=== PATIENT | female | born 1965 | race Caucasian/White ===

== ENCOUNTER 2022-03-04 10:31 | Emergency (ER) | payer BC ==
--- OUTSIDE RECORDS SUMMARY | 2022-03-04 10:33 | XMS REPORT | Clinical Summary ---
:1965 Author Organization [facility] Address [address] [place] [address] Care Team Providers Name Role Phone Amber Ayala MD Unavailable Gamal Paiz MD Unavailable Magui Jasso MD Primary Care Provider Allergies No known active allergies Medications Medication Sig Dispensed Refills Start Date End Date Status doxycycline Take 1 tablet by 0 12/25/2020 Active (VIBRAMYCIN) 100 mg mouth twice daily. tablet escitalopram Take 1 tablet by 0 11/18/2020 Active (LEXAPRO) 10 mg mouth daily. tablet Elidel 1 % cream Apply 1 application 0 12/25/2020 Active topically to affected area(s) daily. Soolantra 1 % crea Apply 1 application 0 12/25/2020 Active topically to affected area(s) daily. multivitamin Take 1 tablet by 0 Active (multivitamin) tablet mouth daily. ascorbic acid, Take 1,000 mg by 0 Active vitamin C, (vitamin mouth daily. C) 1000 mg tablet zinc 50 mg tab Take 1 tablet by 0 Active mouth daily. UNABLE TO FIND Take 500 mg by 0 Active mouth daily. Med Name: Qurcetine cholecalciferol, Take 1 tablet by 0 Active vitD3,/vit K2 mouth daily. (vitamin D3-vitamin K2) 250 mcg (10,000 unit)-45 mcg cap levothyroxine Take 1 tablet by 0 01/13/2021 Active (SYNTHROID, mouth daily. LEVOTHROID) 112 mcg tablet Active Problems Problem Noted Date Graves' disease 01/22/2021 Atypical squamous cells cannot exclude high grade squa mous intraepithelial 01/21/2021 lesion on cytologic smear of cervix (ASC-H) Positive cervical high risk HPV DNA test 01/21/2021 Encounters Date Type Specialty Care Team Description 01/19/2022 Orders Only Gynecology Tierra Gupta PA after 03/04/2021 Surgical History Surgery Date Site/Laterality Comments COLONOSCOPY Medical History Medical History Date Comments Allergic rhinitis year long Cyst of breast fibroid cysts Asthma Menopause Disorder of thyroid gland Graves disease -radiation therapy Anxiety Family History Medical History Relation Name Comments -Other cancer Maternal Grandfather -Other cancer Mother Magaly Espinal Sinus Cancer Relation Name Status Comments Maternal Grandfather Other Back cancer Mother Magaly Espinal Social History Tobacco Use Types Packs/Day Years Used Date Smoking Tobacco: Never Smokeless Tobacco: Never Alcohol Use Standard Drinks/Week Comments Yes 2 (1 standard drink = 0.6 oz pure alcoho l) Social drinker Sex Assigned at Date Recorded Not on file Job Start Date Occupation Industry Not on file Not on file Not on file Obstetrics History Para Term AB IAB SAB Ectopic Multiple Living Live Births 2 2 2 Date Outcome GA Total Labor/2nd/3rd Weight Sex Delivery Anes PTL Shannon A 1 A5 Name Clin Labor Term Term Last Filed Vital Signs Not on file Plan of Treatment Health Maintenance Due Date Last Done Comments COVID-19 Vaccination (#1) 1965 Results Not on fileafter 03/04/2021 Insurance Payer Benefit Plan / Subscriber ID Effective Dates Phone Addre ss Type Group [place] O [id number] 2016-Present PO CRUZ [id number] [facility] [place]UE [place] BLUE/[place] [id number] Care Teams Community Specialist Relationship Specialty Start Date End Date Amber Ayala PCP - External Obstetrics/Gynecology 11/23/20 MD Eliana Referring [address] [address] Gamal Paiz PCP - External Primary Internal Medicine 12/01/20 MD Bailey Care Provider Magui Jasso, PCP - General Gynecological Oncology 12/21/[address] [place] [id number]
--- OUTSIDE RECORDS SUMMARY | 2022-03-04 10:34 | XMS REPORT | Continuity of Care Document ---
:1965 Author Organization [facility] t Address [address] [place] [address] [place] [id number] Care Team Providers Name Role Phone Korin Jasso MD Primary Care Physician SYSTEM, PROVIDER NOT IN Attending Clinician Unavailable Jordan Snider Attending Clinician Unavailable Mark Wu MD Attending Clinician Tierra Beal Attending Clinician KORIN JASSO Attending Clinician Unavailable MELY COY Attending Clinician Unavailable SHAYNA SCHMIDT Attending Clinician Unavailable Gamal Paiz Admitting Clinician Unavailable Payers Payer Name Policy Type Policy Number Effective Date Expiration Date S ource Problems Condition Condition Condition Status Onset Resolution Last Treating Co mments Source Name Details Category Date Date Treatment Clinician Date Graves' Graves' Disease Active 2020-04 Univers disease disease 0-01 ity of 00:00: [place] 00 [facility] Atypical Atypical Disease Active Unive rs squamous squamous 01-21 ity of cells cells 00:00: [place] cannot cannot 00 exclude exclude [place] high grade high grade n squamous squamous Cancer intraepith intraepith Ce nter elial elial lesion on lesion on cytologic cytologic smear of smear of cervix cervix (ASC-H) (ASC-H) Positive Positive Disease Active 2021-0 Unive rs cervical cervical 9-30 [place] of high risk high risk [place] HPV DNA HPV DNA [facility] Allergies, Adverse Reactions, Alerts Allergy Allergy Status Severity Reaction(s) Onset Inactive Treating Comm ents Source Name Type Date Date Clinician No Known DA Active U 2021-04 [facility]10 [place] [facility] Family History Family Member Diagnosis Comments Start Date Stop Date Source Natural mother -Other cancer [facility] Natural mother Cancer [facility] Maternal grandfather -Other cancer [facility] Natural father Diabetes [facility] Natural father Heart attack [facility] Social History Social Habit Start Date Stop Date Quantity Comments Source Alcohol intake 2021-01-25 2021-01-25 Current drinker Unive rsity of 00:00:00 00:00:00 of alcohol [place] MD Santamaria [facility] Tobacco use and 2021-01-22 2021-01-22 Smokeless tobacco Un iversity of exposure 00:00:00 00:00:00 non-user Bella Santamaria [facility] Alcohol Comment 2021-01-22 2021-01-22 Social drinker Unive rsity of 00:00:00 00:00:00 [place] MD Santamaria [facility] Sex Ass[birth year] At [birth year] Univers[facility] y of 00:00:00 00:00:00 [place] MD Santamaria [facility] Smoking Status Start Date Stop Date Source Never smoked tobacco [facility] Medications Ordered Filled Start Stop Current Ordering Indication Dosage Frequency Signature Comments Components Source Medication Medication Date Date Medication? Clinician (SIG) Name Name multivitami 2020-04 Yes 1{tbl} Take 1 Un guy n 0-01 tablet by ity of (multivitam 10:13: mouth [place] in) tablet 38 daily. MD [place] kraft [facility] ascorbic 2020-04 Yes 1000mg Take 1,000 U nivers acid, 0-01 mg by ity of vitamin C, 10:13: mouth [place] (vitamin C) 38 daily. 1000 mg [place] [facility] zinc 50 mg 2020-04 Yes 1{tbl} Take 1 Uni vers tab 0-01 tablet by ity of 10:13: mouth [place] 38 daily. MD [place] kraft [facility] UNABLE TO 2020-04 Yes 500mg Take 500 Uni vers FIND 0-01 mg by ity of 10:13: mouth [place] 38 daily. Med Name: [place] Qurcetine [facility] cholecalcif 2020-04 Yes 1{tbl} Take 1 Un guy pretty, 0-01 tablet by ity of vitD3,/vit 10:13: mouth [place] K2 (vitamin 38 daily. D3-vitamin Latoyaerso K2) 250 mcg n (10,000 Cancer unit)-45 [facility] cap multivitami 2020-04 Yes 1{tbl} Take 1 Un guy n 0-01 tablet by ity of (multivitam 10:13: mouth [place] in) tablet 38 daily. MD [place] kraft [facility] ascorbic 2020-04 Yes 1000mg Take 1,000 U nivers acid, 0-01 mg by ity of vitamin C, 10:13: mouth [place] (vitamin C) 38 daily. 1000 mg [place] tablet [facility] zinc 50 mg 2020-04 Yes 1{tbl} Take 1 Uni vers tab 0-01 tablet by ity of 10:13: mouth [place] 38 daily. MD [place] kraft [facility] UNABLE TO 2020-04 Yes 500mg Take 500 Uni vers FIND 0-01 mg by ity of 10:13: mouth [place] 38 daily. Med Name: [place] Qudanielaetine [facility] cholecalcif 2020-04 Yes 1{tbl} Take 1 Un guy pretty, 0-01 tablet by ity of vitD3,/vit 10:13: mouth [place] K2 (vitamin 38 daily. D3-vitamin [place] K2) 250 mcg n (10,000 Cancer unit)-45 [facility] cap levothyroxi Yes 1{tbl} Take 1 Un guy ne 9-22 tablet by ity of (SYNTHROID, 00:00: mouth [place] LEVOTHROID) 00 daily. 112 mcg [place] tablet [facility] levothyroxi Yes 1{tbl} Take 1 Un guy ne 9-22 tablet by ity of (SYNTHROID, 00:00: mouth [place] LEVOTHROID) 00 daily. 112 mcg [place] tablet [facility] doxycycline 2021-0 Yes 1{tbl} Take 1 Un guy (VIBRAMYCIN 9-03 tablet by ity of ) 100 mg 00:00: mouth [place] tablet 00 twice MD daily. [facility] Elidel 1 % Yes 1{appli Apply 1 U nivers cream 9-03 cation} applicatio ity o f 00:00: n [place] 00 topically MD to Anderso affected n area(s) Cancer daily. [place] Soolantra 1 Yes 1{appli Apply 1 Univers % crea 9-03 cation} applicatio ity of 00:00: n [place] 00 topically MD to Anders[place] affected n area(s) Cancer daily. [place] doxycycline Yes 1{tbl} Take 1 Un guy (VIBRAMYCIN 9-03 tablet by ity of ) 100 mg 00:00: mouth [place] tablet 00 twice MD daily. [facility] Elidel 1 % Yes 1{appli Apply 1 U nivers cream 9-03 cation} applicatio ity o f 00:00: n [place] 00 topically MD to Anderso affected n area(s) Cancer daily. [place] Soolant 1 Yes 1{appli Apply 1 Univers % crea 9-03 cation} applicatio ity of 00:00: n [place] 00 topically MD to Anderso affected n area(s) Cancer daily. [place] escitalopra Yes 1{tbl} Take 1 Un guy m (LEXAPRO) 7-28 tablet by ity of 10 mg 00:00: mouth [place] tablet 00 daily. MD [place] kraft [facility] escitalopra Yes 1{tbl} Take 1 Un guy m (LEXAPRO) 7-28 tablet by ity of 10 mg 00:00: mouth [place] tablet 00 daily. MD [place] kraft [facility] levothyroxi 0 Yes [facility] - [facility] (SYNTHROID) 00:00: Hospit a 88 mcg 00 l tablet levothyroxi 0 Yes [facility] ne [facility]-22 st (SYNTHROID) 00:00: Hospit a 88 mcg 00 l tablet escitalopra Yes [facility] i [facility] (LEXAPRO) 05-20 st 20 MG 00:00: Hospita tablet 00 l escitalopra 2020-0 Yes [facility] i [facility] (LEXAPRO) 05-20 st 20 MG 00:00: Hospita tablet 00 l Procedures This patient has no known procedures. Plan of Care Planned Activity Planned Date Details Comments Source Future Scheduled 2022-03-01 HEPATITIS B VACCINES [facility] Test 13:36:25 (1 of 3 - 3-dose series) [code = HEPATITIS B VACCINES (1 of 3 - 3-dose series)] Future Scheduled 2022-03-01 COVID-19 VACCINE (#1) [facility] Test 13:36:25 [code = COVID-19 VACCINE (#1)] Future Scheduled 2022-03-01 Hepatitis C screening [facility] Test 13:36:25 (procedure) [code = 407752999] Future Scheduled 2022-03-01 Screening for [facility] Test 13:36:25 malignant neoplasm of cervix (procedure) [code = 057815681] Future Scheduled 2022-03-01 BREAST CANCER [facility] Test 13:36:25 SCREENING [code = BREAST CANCER SCREENING] Future Scheduled 2022-03-01 COLONOSCOPY SCREENING [facility] Test 13:36:25 [code = COLONOSCOPY SCREENING] Future Scheduled 2022-03-01 SHINGLES VACCINES (1 [facility] Test 13:36:25 of 2) [code = SHINGLES VACCINES (1 of 2)] Future Scheduled 2022-03-01 INFLUENZA VACCINE Method [facility] Test 13:36:25 [code = INFLUENZA VACCINE] Future Scheduled 2022-03-01 HEPATITIS B VACCINES [facility] Test 13:36:25 (1 of 3 - 3-dose series) [code = HEPATITIS B VACCINES (1 of 3 - 3-dose series)] Future Scheduled 2022-03-01 COVID-19 VACCINE (#1) [facility] Test 13:36:25 [code = COVID-19 VACCINE (#1)] Future Scheduled 2022-03-01 Hepatitis C screening [facility] Test 13:36:25 (procedure) [code = 504776829] Future Scheduled 2022-03-01 Screening for [facility] Test 13:36:25 malignant neoplasm of cervix (procedure) [code = 308413403] Future Scheduled 2022-03-01 BREAST CANCER [facility] Test 13:36:25 SCREENING [code = BREAST CANCER SCREENING] Future Scheduled 2022-03-01 COLONOSCOPY SCREENING [facility] Test 13:36:25 [code = COLONOSCOPY SCREENING] Future Scheduled 2022-03-01 SHINGLES VACCINES (1 [facility] Test 13:36:25 of 2) [code = SHINGLES VACCINES (1 of 2)] Future Scheduled 2022-03-01 INFLUENZA VACCINE [facility] Test 13:36:25 [code = INFLUENZA VACCINE] Future Scheduled 2022-01-26 COVID-19 Vaccination [facility] [place] Test 08:33:10 (#1) [code = COVID-19 [facility] Vaccination (#1)] Center Future Scheduled 2022-01-26 COVID-19 Vaccination [facility] [place] Test 08:33:10 (#1) [code = COVID-19 MD [facility] Vaccination (#1)] Center Encounters Start End Encounter Admission Attending Care Care Encounter Source Date/Time Date/Time Type Type Clinicians Facility Department ID 2021-02-04 Outpatient SYSTEM, LILLY CARR [id number] 11:25:18 PROVIDER Silver o swapnil 2020-11-25 Outpatient SYSTEM, LILLY CARR [id number] 08:22:57 PROVIDER Silver o n 2022-03-03 2022-03-03 Emergency EM Snider, [facility] [id number] [facility] 14:20:00 16:30:00 Jordan 24 [facility] 2022-03-01 2022-03-01 Transcribe Attar, 1.2.840.1 [id number] Methodi 00:00:00 00:00:00 Orders Mark [address] 3.430.2.7 Hospit a .3.337712 l .8 2022-03-01 2022-03-01 Transcribe Attar, 1.2.840.1 [id number] Methodi 00:00:00 00:00:00 Orders Mark [address].1.[address] 3.430.2.7 Hospit a .3.093195 l .8 2022-01-19 2022-01-19 Orders Tierra Gupta 1.2.840.1 [id number] [facility] 00:00:00 00:00:00 Only 59266.1.1 ity of 3.412.2.7 [place] .3.082404 .8 [facility] Center 2022-01-19 2022-01-19 Tierra Ohara 1.2.840.1 [id number] [facility] 00:00:00 00:00:00 Only 24062.1.1 ity of 3.412.2.7 [place] .3.698093 .8 [facility] 2021-01-22 2021-01-22 Outpatient NIKIA JASSO MDA MDA [id number] 09:34:58 09:34:58 KORIN kraft 2021-01-22 2021-01-22 Outpatient NIKIA COY MDA MDA [id number] 09:29:58 09:30:13 MELY kraft 2019-10-17 2019-10-17 Outpatient ROXANA [facility] [id number] 00:00:00 00:00:00 SHAYNA [address] 2019-09-05 2019-09-05 Outpatient [facility] [id number] 00:00:00 00:00:00 SHAYNA [address] 2019-09-05 2019-09-05 Outpatient [facility] [id number] 00:00:00 00:00:00 SHAYNA [address] 2019-07-02 2019-07-02 [facility] [id number] [place] 00:00:00 00:00:00 SHAYNA [address] Results Test Description Test Time Test Comments Results Result Comments Source - XR FOOT 3+V LT 2022-03-03 15:15:00 [facility] LYLYName: CHRISTOPHE STONER : 1965 Sex: F Name: CHRISTOPHE STONER : 1965 Age/S: 56 / F [address] [address] [place] Unit #: [id number] Loc: [place] [address] Phys: Jordan Snider MD Acct: [id number] Dis Date: Status: REG ER PHONE #: [phone] Exam Date: 03/03/2022 1436 FAX #: Reason: injury 5th digit EXAMS: CPT: [id number] XR FOOT 3+[place] [address] Fluoro Time: DAP (Gy m2): Air Kerma (mGy): Location Code: S17 EXAMINATION: - XR FOOT 3+V LT CLINICAL INDICATION: Female, 56 years old with injury 5th digit COMPARISON: None FINDINGS: Three view(s) of the foot obtained. Joint spaces: Anatomic. Bones: Acute obliquely oriented fracture through the mid to distal shaft of the 5th digit proximal phalanx. Loring medial angulation. No definite intra-articular extension of the fracture line. The remainder of the visualized osseous structures appear grossly intact. Soft tissues: Soft tissue swelling about the 5th digit. IMPRESSION: Obliquely oriented fracture through the mid to distal shaft of the 5th digit proximal phalanx with apex medial angulation. No definite intra-articular extension of the fracture line. at 1515 Reported and signed by: Jason Villalta M.D. CC: Jordan Snider MD; Asim Henry TEST INSPECTION ENGINEER PAGE 1 Signed Report Name: CHRISTOPHE STONER : 1965 Age/S: 56 / F [address] [facility] Unit #: [id number] Loc: [place] [address] Phys: Jordan Snider MD Acct: [id number] Dis Date: Status: REG ER PHONE #: [phone] Exam Date: 03/03/2022 1436 FAX #: Reason: injury 5th digit EXAMS: CPT: [id number] XR FOOT 3+[place] [address] Fluoro Time: DAP (Gy m2): Air Kerma (mGy): (Continued) Technologist: LOIDA MILLS Trnn[facility] Date/Time: 03/03/2022 (3676) [email or web address] Orig Print D/T: S: 03/03/2022 (4399) PAGE 2 Signed Report
--- NOTE | 2022-03-04 12:41 | RAD REPORT ---
EXAM DESCRIPTION: RAD - Foot Left 2 View - 03/04/2022 12:30 pm CLINICAL HISTORY: PAIN COMPARISON: <Comparisons> FINDINGS: Oblique fracture is seen proximal phalanx of the fifth toe. Mild adjacent soft tissue swel ling. Tiny calcaneal spurs.
[2022-03-04] MEDS ORDERED: LIDOCAINE 1% MPF 30 ML VIAL ONE (12:58)
--- NOTE | 2022-03-04 13:41 | EDPHYS ---
Physician Documentation [facility] Name: Norma Pike Age: 56 yrs Sex: Female : 1965 Arrival Date: 03/04/2022 Time: 10:36 Bed 10 Private MD: Marya Holden ED Physician HPI: 03/04 13:37 This 56 yrs old Female presents to ER via Ambulatory with complaints of Toe jl9 Injury. Patient hit her left toe yesterday and was seen at [facility]. Patient requesting her toe to be reduced. . 13:37 Onset: The symptoms/episode began/occurred yesterday. The patient has experienced a jl9 previous episode. Historical: - Allergies: 10:54 No Known Allergies; ss - Immunization history:: Client reports having NOT received the Covid vaccine. - Social history:: Smoking status: Patient denies any tobacco usage or history of. ROS: 13:38 Constitutional: Negative for fever, chills, and weight loss, Eyes: Negative for injury, jl9 pain, redness, and discharge, ENT: Negative for injury, pain, and discharge, Neck: Negative for injury, pain, and swelling, Cardiovascular: Negative for chest pain, palpitations, and edema, Respiratory: Negative for shortness of breath, cough, wheezing, and pleuritic chest pain, Abdomen/GI: Negative for abdominal pain, nausea, vomiting, diarrhea, and constipation, Back: Negative for injury and pain, : Negative for injury, bleeding, discharge, and swelling. 13:38 Skin: Negative for injury, rash, and discoloration, Neuro: Negative for headache, weakness, numbness, tingling, and seizure, Psych: Negative for depression, anxiety, suicide ideation, homicidal ideation, and hallucinations, Allergy/Immunology: Negative for hives, rash, and allergies, Endocrine: Negative for neck swelling, polydipsia, polyuria, polyphagia, and marked weight changes, Hematologic/Lymphatic: Negative for swollen nodes, abnormal bleeding, and unusual bruising. 13:38 MS/extremity: Positive for swelling, Left fifth toe. Exam: 13:38 Constitutional: This is a well developed, well nourished patient who is awake, alert, jl9 and in no acute distress. Head/Face: Normocephalic, atraumatic. Eyes: Pupils equal round and reactive to light, extra-ocular motions intact. Lids and lashes normal. Conjunctiva and sclera are non-icteric and not injected. Cornea within normal limits. Periorbital areas with no swelling, redness, or edema. ENT: Mucous membranes moist. Neck: Trachea midline, no thyromegaly or masses palpated, and no cervical lymphadenopathy. Supple, full range of motion without nuchal rigidity, or vertebral point tenderness. No Meningismus. Chest/axilla: Normal chest wall appearance and motion. Nontender with no deformity. No lesions are appreciated. Cardiovascular: Regular rate and rhythm with a normal S1 and S2. No gallops, murmurs, or rubs. Normal PMI, no JVD. No pulse deficits. Respiratory: Lungs have equal breath sounds bilaterally, clear to auscultation and percussion. No rales, rhonchi or wheezes noted. No increased work of breathing, no retractions or nasal flaring. Abdomen/GI: Soft, non-tender, with normal bowel sounds. No distension or tympany. No guarding or rebound. No evidence of tenderness throughout. Back: No spinal tenderness. No costovertebral tenderness. Full range of motion. Skin: Warm, dry with normal turgor. Normal color with no rashes, no lesions, and no evidence of cellulitis. 13:38 Neuro: Awake and alert, GCS 15, oriented to person, place, time, and situation. Cranial nerves II-XII grossly intact. Motor strength 5/5 in all extremities. Sensory grossly intact. Cerebellar exam normal. Normal gait. Psych: Awake, alert, with orientation to person, place and time. Behavior, mood, and affect are within normal limits. 13:38 Musculoskeletal/extremity: Extremities: Left fifth toe swollen. . Vital Signs: 10:52 BP 158 / 101; Pulse 88; Resp 15; Temp 97.4(TE); Pulse Ox 100% on R/A; Weight 88.9 kg; ss Height 5 ft. 11 in. (180.34 cm); Pain 0/10; 10:52 Body Mass Index 27.34 (88.90 kg, 180.34 cm) Procedures: 13:39 Reduction: of the , using manipulation, Immobilized with ortho shoe, monica tape. jl9 Patient tolerated well. Post reduction film - reveals improved alignment. MDM: 11:19 Patient medically screened. jl9 13:40 Data reviewed: vital signs, nurses notes. Counseling: I had a detailed discussion with jl9 the patient and/or guardian regarding: the historical points, exam findings, and any diagnostic results supporting the discharge/admit diagnosis, radiology results, the need for outpatient follow up, to return to the emergency department if symptoms worsen or persist or if there are any questions or concerns that arise at home. 03/04 11:39 Order name: XRAY Foot LEFT 2 View; Complete Time: 12:42 jl9 03/04 13:30 Order name: XRAY Foot LEFT 2 View jl9 Administered Medications: 13:20 Drug: Lidocaine (1 %) 20 ml {Note: Administered by NP. Manolo} Volume: 20 ml; Route: ss Infiltration; Disposition Summary: 03/04/22 13:40 Discharge Ordered Location: Home jl9 Condition: Stable jl9 Diagnosis - Nondisplaced fracture of distal phalanx of left great toe jl9 Followup: jl9 - With: Cipriano Kauffman MD - When: 1 - 2 days - Reason: Recheck today's complaints, Continuance of care, Re-evaluation by your physician Discharge Instructions: - Discharge Summary Sheet jl9 - Toe Fracture, Ohom-ej-Gocs jl9 Forms: - Medication Reconciliation Form jl9 - Thank You Letter jl9 - Antibiotic Education jl9 - Prescription Opioid Use jl9 Signatures: Dispatcher [employer] EDJyoti Lal RN RN Manolo [place] jl9 Corrections: (The following items were deleted from the chart) 13:28 13:09 Foot Left W Comparison+RAD.RAD.BRZ ordered. EDWA EDMS
--- NOTE | 2022-03-04 13:41 | ER ---
Nurse's Notes [facility] Name: Norma Pike Age: 56 yrs Sex: Female : 1965 Arrival Date: 03/04/2022 Time: 10:36 Bed 10 Private MD: Marya Holden Diagnosis: Nondisplaced fracture of distal phalanx of left great toe Presentation: 03/04 10:52 Chief complaint: Patient states: Pt reportedly kicked a doorway yesterday and was seen ss in an ED in [place], had toe monica taped, ortho shoe placed and told to follow up. Pt states that she called her nephew who is an ortho doctor who recommended she come to the ER to have toe reduced. Coronavirus screen: Client denies travel out of the [place] in the last 14 days. Ebola Screen: Patient denies exposure to infectious person. Patient denies travel to an Ebola-affected area in the 21 days before illness onset. Initial Sepsis Screen: Does the patient meet any 2 criteria? No. Patient's initial sepsis screen is negative. Does the patient have a suspected source of infection? No. Patient's initial sepsis screen is negative. Risk Assessment: Do you want to hurt yourself or someone else? Patient reports no desire to harm self or others. Onset of symptoms was March 03, 2022. 10:52 Method Of Arrival: Ambulatory ss 10:52 Acuity: LUCIA 4 ss Historical: - Allergies: 10:54 No Known Allergies; ss - Immunization history:: Client reports having NOT received the Covid vaccine. - Social history:: Smoking status: Patient denies any tobacco usage or history of. Screenin:37 Abuse screen: Denies threats or abuse. Denies injuries from another. Nutritional ss screening: No deficits noted. Tuberculosis screening: Never had TB. Fall Risk None identified. Assessment: 13:37 General: Appears in no apparent distress. comfortable, Behavior is calm, cooperative. ss Neuro: Level of Consciousness is awake, alert, Oriented to person, place, time, situation. Respiratory: Airway is patent Respiratory effort is even, unlabored. Derm: Skin is intact, is healthy with good turgor, Skin is dry, Skin is pink, warm \T\ dry. normal. Musculoskeletal: Circulation, motion, and sensation intact. Range of motion: intact in all extremities. Vital Signs: 10:52 BP 158 / 101; Pulse 88; Resp 15; Temp 97.4(TE); Pulse Ox 100% on R/A; Weight 88.9 kg; ss Height 5 ft. 11 in. (180.34 cm); Pain 0/10; 10:52 Body Mass Index 27.34 (88.90 kg, 180.34 cm) ss ED Course: 10:36 Patient arrived in ED. am2 10:36 Marya Holden MD is Private Physician. am2 10:54 Triage completed. ss 10:54 Arm band placed on right wrist. ss 11:19 Manolo Summers is PHCP. jl9 12:32 XRAY Foot LEFT 2 View In Process Unspecified. EDMS 13:37 Jyoti Shane RN is Primary Nurse. ss 13:37 Patient has correct armband on for positive identification. ss 13:37 No provider procedures requiring assistance completed. Patient did not have IV access ss during this emergency room visit. 13:40 Cipriano Kauffman MD is Referral Physician. jl9 13:46 XRAY Foot LEFT 2 View In Process Unspecified. EDMS Administered Medications: 13:20 Drug: Lidocaine (1 %) 20 ml {Note: Administered by NP. Manolo} Volume: 20 ml; Route: ss Infiltration; Medication: 13:37 VIS not applicable for this client. ss Outcome: 13:40 Discharge ordered by . jl9 13:48 Discharged to home ambulatory. ss 13:48 Condition: good 13:48 Discharge instructions given to patient, Instructed on discharge instructions, follow up and referral plans. Demonstrated understanding of instructions, follow-up care, splint care. 13:48 Patient left the ED. ss Signatures: Dispatcher [employer] EDMS Jyoti Shane, MIGUEL RN Coral Rob am2 Manolo Summers jl9
--- NOTE | 2022-03-04 13:52 | RAD REPORT ---
EXAM DESCRIPTION: RAD - Foot Left 2 View - 03/04/2022 1:44 pm CLINICAL HISTORY: PAIN COMPARISON: Foot Left 2 View dated 03/04/2022 FINDINGS/IMPRESSION: Similar alignment of the fifth proximal phalangeal obliquely oriented fracture. Alignment is near anatomic. No other fractures are identified
[2022-03-04 14:27] VITALS: BP 158/101; TEMP 97.4; O2SAT 100
== END 2022-03-04 13:48 | disposition home or self-care (01) ==
LOC: ER 10:31
PROC: 0QSR35Z Reposition Left Toe Phalanx with External Fixation Device, Percutaneous Approach (ICD-10-PCS; principal; 2022-03-04)
DX: S92.425A Nondisplaced fracture of distal phalanx of left great toe, initial encounter for closed fracture (principal)
CPT/HCPCS: 99283

== ENCOUNTER 2022-05-05 22:59 | Emergency (ER) | payer BC ==
--- OUTSIDE RECORDS SUMMARY | 2022-05-05 23:04 | XMS REPORT | Clinical Summary ---
:1965 Author Organization [facility] Address [address] [place] [address] Care Team Providers Name Role Phone Amber Ayala MD Unavailable Gamal Paiz MD Unavailable Magui aJsso MD Primary Care Provider Allergies No known [...] Orders Only Gynecology Tierra Gupta PA after 05/05/2021 Surgical History Surgery Date Site/Laterality Comments COLONOSCOPY [...] Vaccination (#1) 1965 Results Not on fileafter 05/05/2021 Insurance Payer Benefit Plan / Subscriber ID Effective Dates Phone Addre ss Type Group [place] [id number] 2016-Present PO CRUZ [id number] [facility] [place] [place] [place] [employer] [phone] Care Teams Biomed Tech Relationship Specialty Start Date End Date Amber Ayala PCP - External Obstetrics/Gynecology 11/23/20 MD Eliana Referring [address] [id number] Gamal Paiz PCP - External Primary Internal Medicine 12/01/20 MD Bailey Care Provider Magui Jasso, PCP - General Gynecological Oncology 12/21/[address] [place] [id number]
--- OUTSIDE RECORDS SUMMARY | 2022-05-05 23:04 | XMS REPORT | Continuity of Care Document ---
:1965 Author Organization [facility] t Address [address] [place] [address] [place] [id number] Care Team Providers Name Role Phone Aries Todd MD Primary Care Physician SYSTEM, PROVIDER NOT IN Attending Clinician Unavailable Mona Shields MD Attending Clinician Tomas Geiger MD Attending Clinician [phone] Mark Wu MD Attending Clinician ALFIE ZAMARRIPA Attending Clinician Unavailable Jordan Snider Attending Clinician Unavailable Tierra Beal Attending Clinician KORIN PATEL Attending Clinician Unavailable MELY COY Attending Clinician Unavailable SHAYNA SCHMIDT Attending Clinician Unavailable MONA SHIELDS Admitting Clinician Unavailable Gamal Paiz Admitting Clinician Unavailable Payers Payer Name Policy Type Policy Number Effective Date Expiration Date Fidelina vu [employer] [id number] 2016 [facility] 00:00:00 Problems Condition Condition Condition Status Onset Resolution Last Treating Co mments Source Name Details Category Date Date Treatment Clinician Date Deviated Deviated Disease Active Metho di nasal nasal 05-02 st septum septum 00:00: Hospita 00 l Hypertroph Hypertroph Disease Active M ethodi y of nasal y of nasal 05-02 st turbinates turbinates 00:00: Ho spita 00 l Chronic Chronic Disease Active Methodi maxillary maxillary 1- st sinusitis sinusitis 00:00: Hosp maryan 00 l Chronic Chronic Disease Active Methodi frontal frontal 1 st sinusitis sinusitis 00:00: Hosp maryan 00 l Vasomotor Vasomotor Disease Active Met hodi rhinitis rhinitis 05-02 st 00:00: Hospita 00 l Graves' Graves' Disease Active 2020-04 Univers disease disease 0-01 ity of 00:00: [place] 00 MD [facility] Atypical Atypical Disease Active Unive rs squamous squamous 9-30 ity of cells cells 00:00: [place] cannot cannot 00 exclude exclude [facility] high grade high grade n squamous squamous Cancer intraepith intraepith Ce nter elial elial lesion on lesion on cytologic cytologic smear of smear of cervix cervix (ASC-H) (ASC-H) Positive Positive Disease Active Unive rs cervical cervical 9-30 ity of high risk high risk 00[place] HPV DNA HPV DNA 00 test test [facility] Allergies, Adverse Reactions, Alerts Allergy Allergy Status Severity Reaction(s) Onset Inactive Treating Comm ents Source Name Type Date Date Clinician No Known DA Active U 2021-04 [facility] 05[facility]03 [facility] Family History Family Member Diagnosis Comments Start Date Stop Date Source Natural mother -Other cancer [facility] Natural mother Cancer [facility] Maternal grandfather -Other [facility] Natural father Diabetes [facility] Natural father Heart attack [facility] Social History Social Habit Start Date Stop Date Quantity Comments Source Alcohol intake 2022-05-04 2022-05-04 Current drinker [facility] 00:00:00 00:00:00 of alcohol (finding) Tobacco use and 2022-04-29 2022-04-29 Smokeless tobacco [facility] exposure 00:00:00 00:00:00 non-user Alcohol Comment 2022-04-29 2022-04-29 social drinker [facility] 00:00:00 00:00:00 (couple times a week at the most) Sex [birth year] [facility] 00:00:00 00:00:00 [place] [facility] Smoking Status Start Date Stop Date Source Never smoked tobacco [facility] Medications Ordered Filled Start Stop Current Ordering Indication Dosage Frequency Signature Comments Components Source Medication Medication Date Date Medication? Clinician (SIG) Name Name budesonide- Yes 2{puff} Q.5D Inhale 2 Methodi formoteroL 1-[address] (SYMBICORT) 03:06: (two) Hospi ta 80-4.5 41 times a l mcg/actuati day. on inhaler chlorphenir Yes 4mg Q6H Take 1 Meth jacquelyn amine 1-11 tablet (4 st (CHLOR-TRIM 03:06: mg total) H ospita ETON) 4 mg 41 by mouth l tablet every 6 (six) hours as needed for allergies. multivitami Yes 2{tbl} QD Take 2 Me thodi n tablet 1-[address] 03:06: mouth Hospita 41 daily. l diphenhydrA Yes 25mg QD Take 1 Meth jacquelyn MINE 1-11 tablet (25 st (BENADRYL) 03:06: mg total) Ho spita 25 mg 41 by mouth l tablet nightly as needed for sleep. escitalopra Yes 10mg QD Take 1 Meth jacquelyn m (LEXAPRO) 1-11 tablet (10 st 10 MG 03:06: mg total) Hospita tablet 41 by mouth l every morning. triamcinolo Yes 2{spray QD 2 sprays Methodi ne 11 } into each st acetonide 03:06: nostril Hospi ta (NASACORT 41 daily. l NASL) Lactobac Yes QD Take by Method i no.41/Bifid 1-[address] obact no.7 03:06: daily. Hospi ta (PROBIOTIC- 41 l 10 ORAL) ondansetron 2022- Yes 4mg Q8H Take 1 Met hodi ODT 09 01-20 tablet (4 st (ZOFRAN-ODT 00:00: 05:59 mg total) Hospita ) 4 MG 00 :00 by mouth l disintegrat every 8 ing tablet (eight) hours as needed for nausea or vomiting for up to 10 days. HYDROcodone 2022- Yes [id number] 1{tbl} Q6H Take 1 Methodi -acetaminop 05-[address] hen (NORCO) 00:00: 05:59 mouth Hosp maryan 5-325 mg 00 :00 every 6 l per tablet (six) hours as needed for moderate pain for up to 7 days .acute pain. Max Daily Amount: 4 tablets sulfamethox 2022- Yes 1{tbl} Q.5D Take 1 M ethodi azole-trime 05-[address] thoprim 00:00: 05:59 mouth 2 Hospit a (Bactrim 00 :00 (two) l DS) 800-160 times a mg per day for 7 tablet days. levothyroxi 2021-04 Yes 112ug QD Take 1 Met hodi ne 2-[address] (SYNTHROID) 00:00: (112 mcg Ho spita 112 mcg 00 total) by l tablet mouth every morning. estradioL 2021-04 Yes Q.5W 2 (two) Metho di 10 mcg 2-[address] vaginal 00:00: week. Hospita tablet 00 l multivitami 2020-04 Yes 1{tbl} Take 1 Un guy n 0-01 tablet by ity of (multivitam 10:13: mouth [place] in) tablet 38 daily. MD [place] [facility] ascorbic 2020-04 Yes 1000mg Take 1,000 U nivers acid, 0-01 mg by ity of vitamin C, 10:13: mouth [place] (vitamin C) 38 daily. 1000 mg [place] tablet [facility] zinc 50 mg 2020-04 Yes 1{tbl} Take 1 Uni vers tab 0-01 tablet by ity of 10:13: mouth [place] 38 daily. MD [place] [facility] UNABLE TO 2020-04 Yes 500mg Take 500 Uni vers FIND 0-01 mg by ity of 10:13: mouth [place] 38 daily. Med Name: [place] Qurcetine [facility] cholecalcif 2020-04 Yes 1{tbl} Take 1 Un guy pertty, 0-01 tablet by ity of vitD3,/vit 10:13: mouth [place] K2 (vitamin 38 daily. D3-vitamin Anderso K2) 250 mcg n (10,000 Cancer unit)-45 Center [facility] cap multivitami 2020-04 Yes 1{tbl} Take 1 Un guy n 0-01 tablet by ity of (multivitam 10:13: mouth [place] in) tablet 38 daily. MD [place] [facility] ascorbic 2020-04 Yes 1000mg Take 1,000 U nivers acid, 0-01 mg by ity of vitamin C, 10:13: mouth [place] (vitamin C) 38 daily. 1000 mg Anderso tablet [facility] zinc 50 mg 2020-04 Yes 1{tbl} Take 1 Uni vers tab 0-01 tablet by ity of 10:13: mouth [place] 38 daily. MD [place] kraft [facility] UNABLE TO 2020-04 Yes 500mg Take 500 Uni vers FIND 0-01 mg by ity of 10:13: mouth [place] 38 daily. Med Name: [place] Qurcetine [facility] cholecalcif 2020-04 Yes 1{tbl} Take 1 Un guy pretty, 0-01 tablet by ity of vitD3,/vit 10:13: mouth [place] K2 (vitamin 38 daily. D3-vitamin Anderso K2) 250 mcg n (10,000 Cancer unit)-45 Center [facility] cap multivitami 2020-04 Yes 1{tbl} Take 1 Un guy n 0-01 tablet by ity of (multivitam 10:13: mouth [place] in) tablet 38 daily. MD [facility] ascorbic 2020-04 Yes 1000mg Take 1,000 U nivers acid, 0-01 mg by ity of vitamin C, 10:13: mouth [place] (vitamin C) 38 daily. 1000 mg Latoyaersadore tablet [facility] zinc 50 mg 2020-04 Yes 1{tbl} Take 1 Uni vers tab 0-01 tablet by ity of 10:13: mouth [place] 38 daily. MD [facility] UNABLE TO 2020-04 Yes 500mg Take 500 Uni vers FIND 0-01 mg by ity of 10:13: mouth [place] 38 daily. Med Name: [place] Qurcetine [facility] cholecalcif 2020-04 Yes 1{tbl} Take 1 Un guy pretty, 0-01 tablet by ity of vitD3,/vit 10:13: mouth [place] K2 (vitamin 38 daily. D3-vitamin Anderso K2) 250 mcg n (10,000 Cancer unit)-45 Center mcg cap levothyroxi Yes 1{tbl} Take 1 Un guy ne 9-22 tablet by ity of (SYNTHROID, 00:00: mouth [place] LEVOTHROID) 00 daily. 112 mcg Anderso tablet n [facility] levothyroxi Yes 1{tbl} Take 1 Un guy ne 9-22 tablet by ity of (SYNTHROID, 00:00: mouth [place] LEVOTHROID) 00 daily. 112 mcg Anderso tablet n [facility] levothyroxi Yes 1{tbl} Take 1 Un guy ne 9-22 tablet by ity of (SYNTHROID, 00:00: mouth [place] LEVOTHROID) 00 daily. 112 mcg Anderso tablet n [facility] doxycycline Yes 1{tbl} Take 1 Un guy (VIBRAMYCIN 9-03 tablet by ity of ) 100 mg 00:00: mouth [place] tablet 00 twice MD daily. [facility] Elidel 1 % Yes 1{appli Apply 1 U nivers cream 9-03 cation} applicatio ity o f 00:00: n [place] 00 topically MD to Anderso affected n area(s) Cancer daily. Lyman Soolantra 1 Yes 1{appli Apply 1 Univers % crea 9-03 cation} applicatio ity of 00:00: n [place] 00 topically MD to Anderso affected n area(s) Cancer daily. [facility]yman doxycycline Yes 1{tbl} Take 1 Un guy (VIBRAMYCIN 9-03 tablet by ity of ) 100 mg 00:00: mouth [place] tablet 00 twice MD daily. [facility] Elidel 1 % Yes 1{appli Apply 1 U nivers cream 9-03 cation} applicatio ity o f 00:00: n [place] 00 topically MD to Anderso affected n area(s) Cancer daily. Lyman Soolantra 1 Yes 1{appli Apply 1 Univers % crea 9-03 cation} applicatio ity of 00:00: n [place] 00 topically MD to Anderso affected n area(s) Cancer daily. Lyman doxycycline Yes 1{tbl} Take 1 Un guy (VIBRAMYCIN 9-03 tablet by ity of ) 100 mg 00:00: mouth [place] tablet 00 twice MD daily. [place] [facility] Elidel 1 % Yes 1{appli Apply 1 U nivers cream 12-25 cation} applicatio ity o f 00:00: n [place] 00 topically MD to Anderso affected n area(s) Cancer daily. Lyman Soolantra 1 Yes 1{appli Apply 1 Univers % crea 12-25 cation} applicatio ity of 00:00: n [place] 00 topically MD to Anderso affected n area(s) Cancer daily. Lyman escitalopra Yes 1{tbl} Take 1 Un guy m (LEXAPRO) 7-28 tablet by ity of 10 mg 00:00: mouth [place] tablet 00 daily. MD [place] [facility] escitalopra Yes 1{tbl} Take 1 Un guy m (LEXAPRO) 7-28 tablet by ity of 10 mg 00:00: mouth [place] tablet 00 daily. MD [place] [facility] escitalopra Yes 1{tbl} Take 1 Un guy m (LEXAPRO) 7-28 tablet by ity of 10 mg 00:00: mouth [place] tablet 00 daily. MD [place] [facility] levothyroxi 0 Yes Method i ne 05-22 st (SYNTHROID) 00:00: Hospit a 88 mcg 00 l tablet levothyroxi Yes Method i ne 05-22 st (SYNTHROID) 00:00: Hospit a 88 mcg 00 l tablet levothyroxi 0 2022- No Metho di ne 05-22-06 st (SYNTHROID) 00:00: 00:00 Hospi ta 88 mcg 00 :00 l tablet escitalopra Yes Method i m (LEXAPRO) 05-20 st 20 MG 00:00: Hospita tablet 00 l escitalopra 0 Yes Method i m (LEXAPRO) 05-20 st 20 MG 00:00: Hospita tablet 00 l escitalopra 0 2023- No Metho di m (LEXAPRO) 1-27 04-29 st 20 MG 00:00: 00:00 Hospita tablet 00 :00 l Vital Signs Vital Name Observation Time Observation Value Comments Source Systolic blood 2022-05-02 23:00:00 131 mm[Hg] [facility] pressure Diastolic blood 2022-05-02 23:00:00 86 mm[Hg] [facility] pressure Heart rate 2022-05-02 23:00:00 88 /min [facility] Body temperature 2022-05-02 23:00:00 36.33 [place] [facility] [place] Respiratory rate 2022-05-02 23:00:00 13 /min [facility] [place] Oxygen saturation in 2022-05-02 23:00:00 96 /min [facility] Arterial blood by Pulse oximetry Body height 2022-05-02 15:55:00 180.3 cm [facility] Body weight 2022-05-02 15:55:00 87.635 kg [facility] BMI 2022-05-02 15:55:00 26.95 kg/m2 [facility] Procedures Procedure Date / Time Performing Clinician Source Performed ANAEROBIC CULTURE 2022-05-02 18:43:00 [facility] FUNGUS CULTURE 2022-05-02 18:43:00 [facility] AEROBIC CULTURE 2022-05-02 18:43:00 [facility] FUNGUS SMEAR 2022-05-02 18:43:00 [facility] MN AN ELECTIVE 2022-05-02 18:06:00 Paloma Sewell [facility] ENDOTRACHEAL AIRWAY SEPTOPLASTY, NASAL 2022-05-02 17:51:00 [facility] COVID-19 QUALITATIVE 2022-04-29 22:18:00 [facility] RT-PCR HEMOGLOBIN A1C 2022-04-29 22:11:00 [facility] COMPREHENSIVE METABOLIC 2022-04-29 22:11:00 [facility] PANEL CBC WITH PLATELET AND 2022-04-29 22:11:00 [facility] DIFFERENTIAL ESTIMATED GFR 2022-04-29 22:11:00 [facility] ECG PRE/POST OP 2022-04-29 22:08:[address] [facility] [address] CARDIAC CALCIUM SCORE 2022-03-24 20:51:[address] [facility] Plan of Care Planned Activity Planned Date Details Comments Source Future Scheduled 2022-05-05 COVID-19 VACCINE (#1) [facility] Test 23:03:48 [code = COVID-19 VACCINE (#1)] Future Scheduled 2022-05-05 Hepatitis C screening [facility] Test 23:03:48 (procedure) [code = 616981841] Future Scheduled 2022-05-05 Screening for [facility] Test 23:03:48 malignant neoplasm of cervix (procedure) [code = 597386637] Future Scheduled 2022-05-05 BREAST CANCER [facility] Test 23:03:48 SCREENING [code = BREAST CANCER SCREENING] Future Scheduled 2022-05-05 COLONOSCOPY SCREENING [facility] Test 23:03:48 [code = COLONOSCOPY SCREENING] Future Scheduled 2022-05-05 SHINGLES VACCINES ([address] [facility] Test 23:03:48 of 2) [code = SHINGLES VACCINES (1 of 2)] Future Scheduled 2022-05-05 INFLUENZA VACCINE Method [facility] Test 23:03:48 [code = INFLUENZA VACCINE] Future Scheduled 2022-03-01 COLONOSCOPY SCREENING [facility] Test 13:36:25 [code = COLONOSCOPY SCREENING] Future Scheduled 2022-03-01 SHINGLES VACCINES ([address] [facility] Test 13:36:25 of 2) [code = SHINGLES VACCINES (1 of 2)] Future Scheduled 2022-03-01 INFLUENZA VACCINE Method [facility] Test 13:36:25 [code = INFLUENZA VACCINE] Future Scheduled 2022-03-01 HEPATITIS B VACCINES Met [facility] Test 13:36:25 (1 of 3 - 3-dose series) [code = HEPATITIS B VACCINES (1 of 3 - 3-dose series)] Future Scheduled 2022-03-01 COVID-19 VACCINE (#1) [facility] Test 13:36:25 [code = COVID-19 VACCINE (#1)] Future Scheduled 2022-03-01 Hepatitis C screening [facility] Test 13:36:25 (procedure) [code = [id number]] Future Scheduled 2022-03-01 Screening for [facility] Test 13:36:25 malignant neoplasm of cervix (procedure) [code = 432576523] Future Scheduled 2022-03-01 BREAST CANCER [facility] Test 13:36:25 SCREENING [code = BREAST CANCER SCREENING] Future Scheduled 2022-03-01 COLONOSCOPY SCREENING [facility] Test 13:36:25 [code = COLONOSCOPY SCREENING] Future Scheduled 2022-03-01 SHINGLES VACCINES ([address] [facility] Test 13:36:25 of 2) [code = SHINGLES VACCINES (1 of 2)] Future Scheduled 2022-03-01 INFLUENZA VACCINE Method [facility] Test 13:36:25 [code = INFLUENZA VACCINE] Future Scheduled 2022-03-01 HEPATITIS B VACCINES Met [facility] Test 13:36:25 (1 of 3 - 3-dose series) [code = HEPATITIS B VACCINES (1 of 3 - 3-dose series)] Future Scheduled 2022-03-01 COVID-19 VACCINE (#1) [facility] Test 13:36:25 [code = COVID-19 VACCINE (#1)] Future Scheduled 2022-03-01 Hepatitis C screening [facility] Test 13:36:25 (procedure) [code = [id number]] Future Scheduled 2022-03-01 Screening for [facility] Test 13:36:25 malignant neoplasm of cervix (procedure) [code = 571409157] Future Scheduled 2022-03-01 BREAST CANCER [facility] Test 13:36:25 SCREENING [code = BREAST CANCER SCREENING] Future Scheduled 2022-01-26 COVID-19 Vaccination Uni versity [...] Date/Time Type Type Clinicians Facility Department ID 2022-03-10 Outpatient [facility] [id number] [place] 15:09:52 [id number] [facility] 2022-03-07 Outpatient [facility] [id number] MS 12:44:19 [id number] [facility] 2022-03-04 Outpatient [facility] [id number] MS 14:25:06 [id number] [facility] 2021-02-04 Outpatient SYSTEM, LILLY CARR [id number] 11:25:18 PROVIDER Silver o swapnil 2020-11-25 Outpatient SYSTEM, LILLY CARR [id number] 08:22:57 PROVIDER Silver o swapnil 2022-05-02 2022-05-02 [facility] Messi, 1.2.840.1 [id number] Methodi 08:35:00 23:59:00 Encounter Mona Bone 55321.1.[address] 3.430.2.7 Hospit a .3.792525 l .8 2022-05-02 2022-05-02 [place], 1.2.840.1 [id number] Methodi 11:00:00 15:45:00 Mona Bone 91114.1.[address] 3.430.2.7 Hospit a .3.603820 l .8 2022-05-02 2022-05-02 Anesthesia Shayna, 1.2.840.1 [id number] Methodi 11:51:00 15:30:00 Event Tomas 91630.1.[address] [place] 3.430.2.7 Hospi ta .3.784117 l .8 2022-05-02 2022-05-02 Travel 1.2.840.1 1.2.845.788 [id number] Methodi 00:00:00 00:00:[address] 3.430.2.7 0.2.7.3.698 Ho spita .3.463278 084.8 l .8 2022-05-02 2022-05-02 Outpatient [facility] [id number] [place] 00:00:00 00:00:00 MONA [address] 2022-04-29 2022-04-29 Pre-Admiss Shields, 1.2.840.1 [id number] Methodi 16:20:00 17:20:00 jessica Bone 34919.1.[address] Testing 3.430.2.7 Hospit a .3.960452 l .8 2022-04-29 2022-04-29 Travel 1.2.840.1 1.2.913.301 4515 [id number] Methodi 00:00:00 00:00:[address] 3.430.2.7 0.2.7.3.698 Ho spita .3.753832 084.8 l .8 2022-04-29 2022-04-29 [facility] [id number] [place] 00:00:00 00:00:00 MONA [address] 2022-04-20 2022-04-20 Travel 1.2.840.1 1.2.504.331 [id number] Methodi 00:00:00 00:00:[address] 3.430.2.7 0.2.7.3.698 Ho spita .3.968934 084.8 l .8 2022-03-24 2022-03-24 [facility], 1.2.840.1 [id number] Methodi 14:08:11 23:59:00 Encounter Mark 03736.1.1 271 s t 3.430.2.7 Hospit a .3.846064 l .8 2022-03-24 2022-03-24 Travel 1.2.840.1 1.2.393.247 [id number] Methodi 00:00:00 00:00:[address] 3.430.2.7 0.2.7.3.698 Ho spita .3.141034 084.8 l .8 2022-03-24 2022-03-24 Outpatient ATTAR, [facility] [id number] 00:00:00 00:00:00 MOHAMMED [address] 2022-03-07 2022-03-07 Outpatient MARILOU, [facility] [id number] [place] 13:15:00 14:30:57 [facility] 2022-03-07 2022-03-07 Outpatient [facility] [id number] [place] 00:00:00 14:30:45 [facility] 2022-03-03 2022-03-03 Emergency EM Snider, [facility] [id number] [facility] 14:20:00 16:30:00 Jordan 24 [facility] 2022-03-01 2022-03-01 Transcribe Attar, 1.2.840.1 [id number] Methodi 00:00:00 00:00:00 Orders Mark [address]288.1.[address] 3.430.2.7 Hospit a .3.092947 l .8 2022-03-01 2022-03-01 Transcribe Attar, 1.2.840.1 [id number] Methodi 00:00:00 00:00:00 Orders Mark 90926.1.[address] 3.430.2.7 Hospit a .3.460833 l .8 2022-01-19 2022-01-19 Orders Tierra Gupta 1.2.840.1 [id number] Univers 00:00:00 00:00:00 Only 64936.1.1 ity of 3.412.2.7 [place] .3.040922 MD Jackson8 [facility] 2022-01-19 2022-01-19 Orders Tierra Gupta 1.2.840.1 [id number] Univers 00:00:00 00:00:00 Only 19775.1.1 ity of 3.412.2.7 [place] .3.031277 MD Coburn [facility] 2021-01-22 2021-01-22 Outpatient NIKIA PATEL [facility] [id number] 09:34:58 09:34:58 KORIN kraft 2021-01-22 2021-01-22 Outpatient NIKIA COY [facility] [id number] 09:29:58 09:30:13 MELY kraft 2019-10-17 2019-10-17 Outpatient ROXANA [facility] [id number] 00:00:00 00:00:00 SHAYNA [address] 2019-09-05 2019-09-05 Outpatient ROXANA [facility] [id number] 00:00:00 00:00:00 SHAYNA [address] 2019-09-05 2019-09-05 Outpatient ROXANA [facility] [id number] 00:00:00 00:00:00 SHAYNA [address] 2019-07-02 2019-07-02 Outpatient ROXANA [facility] [id number] [place] 00:00:00 00:00:00 SHAYNA [address] Results Test Description Test Time Test Comments Results Result Comments Source Aerobic culture 2022-05-05 04:59:00 Test Item Value Reference Range Interpretation Comme nts Aerobic culture isolate Staphylococcus, coagulase A Specimen InformationSpecimen (test code = 71290-6) negativeFew Source : SinusSpecimen Site: Maxillary: left maxillary Lab Interpretation (test Abnormal code = 04071-1) [id number] 18:18:00 Test Item Value Reference Range Interpretation Comments Fungus smear No fungi Specimen (test code = observed. InformationSpec imen Source: 1443) SinusSpecimen S ite: Maxillary: left maxillary [facility] [id number] 09:57:00 Test Item Value Reference Range Interpretation Comments Gram stain No organisms Specimen isolate (test seen InformationSpe cimen code = 1469) Source: SinusSp ecimen Site: Maxillary : left maxillary [facility] Pre/Post [id number] 21:15:12 Test Item Value Reference Range Interpretation Comments Ventricular rate (test code = 253) Atrial rate (test code = 255) MN interval (test code = 266) QRSD interval (test code = 260) QT interval (test code = 264) QTC interval (test code = 265) P axis 1 (test code = 267) QRS axis 1 (test code = 268) T wave axis (test code = 270) EKG impression (test Normal sinus code = 273) rhythm-Low voltage QRS-Cannot rule out Anterior infarct , age undetermined-Abnormal ECG-No previous ECGs available-Electronica lly Signed By Goyo Rausch MD ([id number]) on 05/01/2022 3:15:[address] [facility] RNA [Presence] in Respiratory specimen by SYLVIA with probe [id number] 20:02:10 Test Item Value Reference Range Interpretation Comments SARS-CoV-2 (COVID-19) RNA Not detected [Presence] in Respiratory specimen by SYLVIA with probe detection (test code = 39102-8) Whether patient is employed in a Unknown healthcare setting (test code = 88909-4) Whether the patient has symptoms Unknown related to condition of interest (test code = 89607-6) Whether the patient was Unknown hospitalized for condition of interest (test code = 45962-3) Whether the patient was admitted Unknown to intensive care unit (ICU) for condition of interest (test code = 02836-4) Whether patient resides in a Unknown congregate care setting (test code = 41209-7) status (test code = Unknown 19701-9) Date and time of symptom onset Unknown (test code = 14685-2) [facility] FOOT 3+V [id number] 15:15:00 [facility] 1965 Sex: F Name: CHRISTOPHE GARCIA [facility] : 1965 Age/S: 56 / F [address] [place] Unit #: [id number] Loc:Corina Hernandez [address] Phys: Jordan Snider MD Acct: [id number] Dis Date: Status: REG ER PHONE #: [phone] Exam Date: 03/03/2022 1436 FAX #: Reason: injury 5th digit EXAMS: CPT: [id number] XR FOOT 3+[place] [address] Fluoro Time: DAP (Gy m2): Air Kerma (mGy): Location Code: S17 EXAMINATION: - XR FOOT 3+V LT CLINICAL INDICATION: Female, 56 years old with injury 5th digit COMPARISON: None FINDINGS: Three view(s) of the foot obtained. Joint spaces: Anatomic. Bones: Acute obliquely oriented fracture through the mid to distal shaft of the 5th digit proximal phalanx. Goldsmith medial angulation. No definite intra-articular extension of [...] M.D. CC: Jordan Snider MD; Asim Henry NP PAGE 1 Signed Report Name: CHRISTOPHE STONER [place] : 1965 Age/S: 56 / F [id number] Unit #: [id number] Loc: [place] [address] Phys: Jordan Snider MD Acct: [id number] Dis Date: Status: REG ER PHONE #: [phone] Exam Date: 03/03/2022 1436 FAX #: Reason: injury 5th digit EXAMS: CPT: [id number] XR FOOT 3+[place] [address] Fluoro Time: DAP (Gy m2): Air Kerma (mGy): (Continued) Techn ologist: LOIDA MILLS Trnscb Date/Time: 03/03/2022 (1515) [email or web address] Orig Print D/T: S: 03/03/2022 (7738) PAGE 2 Signed Report
[2022-05-05] MEDS ORDERED: LORazepam 2 MG/ML VIAL ONE (23:16)
[2022-05-05 23:40] LABS: Absolute Lymphocytes (CBC) 1.6 K/uL (0.7-4.9); Hematocrit 39.2 % (36.0-45.0); Lymphocytes % 31.8 % (15.3-44.8); MCV 90.5 fL (80-100); MPV 8.2 fL (7.6-11.3); RBC Red Blood Cell Count 4.34 M/uL (3.86-4.86)
[2022-05-05 23:57] LABS: Bilirubin Total 0.4 mg/dL (0.2-1.0); Magnesium 2.3 mg/dL (1.6-2.4); Potassium 3.6 mmol/L (3.5-5.1); Protein, Total 8.1 g/dL (6.4-8.2); Troponin High Sensitivity 5.8 pg/mL (<58.9)
[2022-05-06] MEDS ORDERED: NA CHLORIDE 0.9% 1,000 ML ONE (00:05)
[2022-05-06] MEDS ORDERED: ONDANSETRON 4 MG/2 ML VIAL ONE (01:27)
--- NOTE | 2022-05-06 01:53 | ER ---
Nurse's Notes [facility] Name: Norma Pike Age: 57 yrs Sex: Female : 1965 Arrival Date: 05/05/2022 Time: 23:03 Bed 7 Private MD: Diagnosis: Episodic lightheadedness;Nausea and vomiting Presentation: 05/05 23:03 Chief complaint: EMS states: "She went to go lay down around 7 this evening when she tw5 started to feel faint and dizzy. Her blood pressure was 175 systolic which is high for her. She was also diaphoretic and anxious. She had sinus surgery on Monday.". Coronavirus screen: Vaccine status: Patient reports being unvaccinated. Ebola Screen: Patient negative for fever greater than or equal to 101.5 degrees Fahrenheit, and additional compatible Ebola Virus Disease symptoms Patient denies exposure to infectious person. Patient denies travel to an Ebola-affected area in the 21 days before illness onset. Initial Sepsis Screen: Does the patient meet any 2 criteria? No. Patient's initial sepsis screen is negative. Does the patient have a suspected source of infection? No. Patient's initial sepsis screen is negative. Risk Assessment: Do you want to hurt yourself or someone else? Patient reports no desire to harm self or others. Onset of symptoms was May 05, 2022 at 19:00. 23:03 Method Of Arrival: EMS: [facility] tw5 23:03 Acuity: LUCIA 3 tw5 Triage Assessment: 23:08 General: Appears in no apparent distress. Behavior is calm, cooperative, appropriate tw5 for age. Pain: Denies pain. Respiratory: Airway is patent Trachea midline Respiratory effort is even. GI: No deficits noted. : No deficits noted. Historical: - Allergies: 23:07 No Known Allergies; tw5 - Home Meds: 23:07 levothyroxine 112 mcg cap 1 cap once daily [Active]; Hydrocodone-Acetaminophen Oral tw5 [Active]; sulfamethoxazole-trimethoprim Oral [Active]; - PSHx: 23:07 sinus surgery; tw5 23:08 thyroid radiation; tw5 - Immunization history:: Flu vaccine is not up to date. - Social history:: Smoking status: Patient denies any tobacco usage or history of. Screenin:09 [facility] ED Fall Risk Assessment (Adult) History of falling in the last 3 months, tw5 including since admission No falls in past 3 months (0 pts). Abuse screen: Denies threats or abuse. Denies injuries from another. Nutritional screening: No deficits noted. Tuberculosis screening: No symptoms or risk factors identified. Assessment: 23:09 General: Appears in no apparent distress. Behavior is calm, cooperative, appropriate tw5 for age. Pain: Denies pain. Neuro: No deficits noted. Cardiovascular: Capillary refill < 3 seconds is brisk in left in bilateral. Cardiovascular: Rhythm is sinus rhythm. Respiratory: Airway is patent Trachea midline Respiratory effort is even, unlabored. 05/06 00:05 General: Reports "I still feel like I keep having these 'dizzy spells'.". Neuro: Level tw5 of Consciousness is awake, alert, obeys commands, Oriented to person, place, time, situation. Respiratory: No deficits noted. 01:22 Reassessment: Patient appears in no apparent distress at this time. No changes from tw5 previously documented assessment. Patient and/or family updated on plan of care and expected duration. Pain level reassessed. 01:27 GI: Pt is actively vomiting undigested food. kd3 Vital Signs: 05/05 23:03 BP 158 / 101; Pulse 79; Resp 18; Temp 97.9; Pulse Ox 99% ; Weight 87.54 kg; Height 5 tw5 ft. 11 in. (180.34 cm); Pain 0/10; 23:11 BP 154 / 94 Supine; Pulse 81; tw5 23:11 BP 153 / 92 Sitting; Pulse 91; tw5 23:11 BP 131 / 93 Standing; Pulse 96; tw5 05/06 00:05 BP 136 / 86; Pulse 76; Resp 18; Pulse Ox 100% on R/A; tw5 01:26 Pulse 91; Resp 16; Pulse Ox 100% on R/A; kd3 02:10 BP 135 / 84; Pulse 75; Resp 18; Pulse Ox 98% ; kd3 05/05 23:03 Body Mass Index 26.92 (87.54 kg, 180.34 cm) tw5 ED Course: 05/05 23:03 Patient arrived in ED. as7 23:03 Deborah Miguel is Primary Nurse. tw5 23:06 Arlette Butler MD is Attending Physician. sd2 23:07 Triage completed. tw5 23:08 Arm band placed on Patient placed in an exam room. tw5 23:09 Patient has correct armband on for positive identification. Placed in gown. Bed in low tw5 position. Call light in reach. Side rails up X2. Adult w/ patient. Client placed on continuous cardiac and pulse oximetry monitoring. NIBP monitoring applied. Door closed. Noise minimized. Lights dimmed. Warm blanket given. Verbal reassurance given. 23:33 D-Dimer Sent. as7 23:33 Troponin High Sensitivity Sent. as7 23:33 Magnesium Sent. as7 23:33 CMP Sent. as7 23:33 CBC with Diff Sent. as7 05/06 01:03 CT Chest For PE Angio In Process Unspecified. EDMS 02:11 No provider procedures requiring assistance completed. IV discontinued, intact, kd3 bleeding controlled, No redness/swelling at site. Pressure dressing applied. Administered Medications: 05/05 23:28 Drug: Ativan (LORazepam) 0.5 mg Route: IVP; Site: right antecubital; kd3 05/06 00:06 Follow up: Response: No adverse reaction; Anxiety decreased tw5 00:06 Drug: NS 0.9% 1000 ml Route: IV; Rate: 1 bolus; Site: right antecubital; tw5 02:12 Follow up: IV Status: Completed infusion; IV Intake: 1000ml kd3 01:26 Drug: Zofran (Ondansetron) 4 mg Route: IVP; Site: right antecubital; kd3 02:11 Follow up: Response: No adverse reaction; Nausea is decreased kd3 Medication: 05/05 23:09 VIS not applicable for this client. tw5 Intake: 05/06 02:12 IV: 1000ml; Total: 1000ml. kd3 Outcome: 01:52 Discharge ordered by . sd2 02:11 Discharged to home ambulatory. kd3 02:11 Condition: stable 02:11 Discharge instructions given to patient, family, Instructed on discharge instructions, follow up and referral plans. Demonstrated understanding of instructions, follow-up care. 02:14 Patient left the ED. tw5 Signatures: Dispatcher [employer] ASHLI Deborah Miguel tw5 Arelis Anaya RN RN kd3 Arlette Butler MD MD sd2 Senkyrik, Thao as7
--- NOTE | 2022-05-06 01:53 | EDPHYS ---
Physician Documentation [facility] Name: Norma Pike Age: 57 yrs Sex: Female : 1965 Arrival Date: 05/05/2022 Time: 23:03 Bed 7 Private MD: ED Physician Arlette Butler HPI: 05/05 23:07 This 57 yrs old Female presents to ER via EMS with complaints of Dizziness. sd2 23:07 57-year-old female presents via EMS with chief complaint of "feeling faint." She sd2 reports this started this afternoon/evening with a sensation of "I just did not feel right." She reports she called her doctor's office that she recently had surgery with on Monday for her sinuses and they told her to stop taking the hydrocodone in case it was contributing to her symptoms. However, her symptoms worsened and her BP was also reading high at 170/110 on first check with EMS and therefore, she called 911. Initial BGL was normal. . Historical: - Allergies: 23:07 No Known Allergies; tw5 - Home Meds: 23:07 levothyroxine 112 mcg cap 1 cap once daily [Active]; Hydrocodone-Acetaminophen Oral tw5 [Active]; sulfamethoxazole-trimethoprim Oral [Active]; - PSHx: 23:07 sinus surgery; tw5 23:08 thyroid radiation; tw5 - Immunization history:: Flu vaccine is not up to date. - Social history:: Smoking status: Patient denies any tobacco usage or history of. ROS: 23:07 Constitutional: Negative for fever, chills, and weight loss, Eyes: Negative for injury, sd2 pain, redness, and discharge, Cardiovascular: Negative for chest pain, palpitations, and edema, Respiratory: Negative for shortness of breath, cough, wheezing. Abdomen/GI: Negative for abdominal pain, nausea, vomiting, diarrhea. MS/Extremity: Negative for injury and deformity, Skin: Negative for injury, rash, and discoloration, Neuro: Negative for headache, numbness and tingling. Positive for dizziness. Exam: 23:07 Constitutional: This is a well developed, well nourished patient who is awake, alert, sd2 and in no acute distress. Head/Face: Normocephalic, atraumatic. Eyes: EOMI, normal conjunctiva bilaterally Chest/axilla: Normal chest wall appearance and motion. Nontender with no deformity. Cardiovascular: Regular rate and rhythm with a normal S1 and S2. No gallops, murmurs, or rubs. 2+ distal pulses. Respiratory: Lungs have equal breath sounds bilaterally, clear to auscultation and percussion. No rales, rhonchi or wheezes noted. No increased work of breathing, no retractions or nasal flaring. Abdomen/GI: Soft, non-tender, with normal bowel sounds. No guarding or rebound. No evidence of tenderness throughout. Skin: Warm, dry with normal turgor. Normal color with no rashes, no lesions, and no evidence of cellulitis. MS/ Extremity: Pulses equal, no cyanosis. Neurovascular intact. Full, normal range of motion. Ambulatory without difficulty. Psych: Awake, alert, with orientation to person, place and time. Behavior, mood, and affect are within normal limits. 23:27 ECG was reviewed by the Attending Physician. NSR, rate 79, no STEMI criteria sd2 Vital Signs: 23:03 BP 158 / 101; Pulse 79; Resp 18; Temp 97.9; Pulse Ox 99% ; Weight 87.54 kg; Height 5 tw5 ft. 11 in. (180.34 cm); Pain 0/10; 23:11 BP 154 / 94 Supine; Pulse 81; tw5 23:11 BP 153 / 92 Sitting; Pulse 91; tw5 23:11 BP 131 / 93 Standing; Pulse 96; tw5 05/06 00:05 BP 136 / 86; Pulse 76; Resp 18; Pulse Ox 100% on R/A; tw5 01:26 Pulse 91; Resp 16; Pulse Ox 100% on R/A; kd3 02:10 BP 135 / 84; Pulse 75; Resp 18; Pulse Ox 98% ; kd3 05/05 23:03 Body Mass Index 26.92 (87.54 kg, 180.34 cm) tw5 MDM: 05/05 23:06 Patient medically screened. sd2 23:07 Differential diagnosis: cardiac arrhythmia, CVA, GI bleed, head injury, sd2 hyperventilation, hypovolemia, idiopathic dizziness, near-syncope, , sepsis, vertigo, among others. Data reviewed: vital signs, nurses notes, EMS record. 05/06 01:49 Data reviewed: lab test result(s), EKG, radiologic studies. Consideration of sd2 Admission/Observation Escalation of care including admission/observation considered. Not indicated at this time with stable VS and patient feeling overall improved. No admission criteria present. . I considered the following discharge prescriptions or medication management in the emergency department I discussed and recommended Over The Counter medications, Medications were administered in the Emergency Department. See MAR. Independent interpretation of the following test(s) in the Emergency Department EKG: See my EKG interpretation above property assessment monitor: rate is 72 beats/min, Rhythm is normal sinus rhythm, with no ectopy, Interpretation: normal rate, normal rhythm. Historians other than the Patient: EMS: . Spouse/Significant Other: . Counseling: I had a detailed discussion with the patient and/or guardian regarding: the historical points, exam findings, and any diagnostic results supporting the discharge/admit diagnosis, lab results, radiology results, the need for outpatient follow up, to return to the emergency department if symptoms worsen or persist or if there are any questions or concerns that arise at home. ED course: Labs and imaging reviewed. Labs are grossly within normal clinical limits. Troponin negative. EKG with no ischemic changes. D-dimer is elevated so a CTA was performed which was negative for PE. The patient has a very benign abdominal exam although she did have nausea and one episode of vomiting while in the ER. She is feeling much improved now. She did take her hydrocodone today on an empty stomach which she has not done previously. I believe this could be medication induced in her surgeon who performed her sinus surgery earlier this week outside the same when she called them on the phone and recommended that she stop the medication and take Tylenol and ibuprofen only at home. This recommendation was also reiterated here in the ER. The patient is comfortable with the plan for discharge and outpatient follow-up and verbalizes understanding of strict return precautions.. 05/05 23:07 Order name: CBC with Diff; Complete Time: 23:52 sd2 05/05 23:07 Order name: CMP; Complete Time: 00:02 sd2 05/05 23:07 Order name: Magnesium; Complete Time: 00:02 sd2 05/05 23:07 Order name: Troponin High Sensitivity; Complete Time: 00:02 sd2 05/05 23:07 Order name: D-Dimer; Complete Time: 23:52 sd2 05/05 23:45 Order name: CT Chest For PE Angio sd2 05/05 23:07 Order name: EKG - Nurse/Tech; Complete Time: 23:11 sd2 05/05 23:07 Order name: Orthostatics; Complete Time: 23:27 sd2 Administered Medications: 05/05 23:28 Drug: Ativan (LORazepam) 0.5 mg Route: IVP; Site: right antecubital; kd3 05/06 00:06 Follow up: Response: No adverse reaction; Anxiety decreased tw5 00:06 Drug: NS 0.9% 1000 ml Route: IV; Rate: 1 bolus; Site: right antecubital; tw5 02:12 Follow up: IV Status: Completed infusion; IV Intake: 1000ml kd3 01:26 Drug: Zofran (Ondansetron) 4 mg Route: IVP; Site: right antecubital; kd3 02:11 Follow up: Response: No adverse reaction; Nausea is decreased kd3 Disposition Summary: 05/06/22 01:52 Discharge Ordered Location: Home sd2 Problem: new sd2 Symptoms: have improved sd2 Condition: Stable sd2 Diagnosis - Episodic lightheadedness sd2 - Nausea and vomiting sd2 Followup: sd2 - With: Private Physician - When: 2 - 3 days - Reason: Recheck today's complaints, Continuance of care, Re-evaluation by your physician Discharge Instructions: - Discharge Summary Sheet sd2 - Dizziness sd2 - Nausea and Vomiting, Adult sd2 Forms: - Medication Reconciliation Form sd2 - Thank You Letter sd2 - Antibiotic Education sd2 - Prescription Opioid Use sd2 Signatures: Dispatcher [employer] ASHLI LamontDeborah tw5 Arelis Anaya RN RN kd3 Arlette Butler MD MD sd2 Corrections: (The following items were deleted from the chart) 05/05 23:09 23:07 57-year-old female presents via EMS with chief complaint of "feeling faint." She sd2 reports this started this afternoon/evening with a sensation of "I just did not feel right." She reports she called her doctor's office that she recently had surgery with on Monday for her sinuses and they told her to stop taking the hydrocodone in case it was contributing to her symptoms. However, her symptoms worsened and her BP was also reading high at 170/110 on first check with EMS and therefore, she called 911.. sd2
[2022-05-06 02:24] VITALS: TEMP 97.9
[2022-05-06 02:27] VITALS: BP 135/84; O2SAT 98
--- NOTE | 2022-05-06 10:48 | EKG ---
Test Date: 2022-05-05 Test Time: 23:09:13 Channel Lip Wetter: GYPSY MEASUREMENT RESULTS: Intervals: Rate: 79 GA: 174 QRSD: 82 QT: 414 QTc: 474 [place]: P: 60 GA: 174 QRS: 27 T: 71 INTERPRETIVE STATEMENTS: Normal sinus rhythm Normal ECG No previous ECG available for comparison Electronically Signed On 05-06-22 10:46:30 FRONT OFFICE CLERK by Eusebio Rivera
--- NOTE | 2022-05-06 10:54 | RAD REPORT ---
CT Angiography Chest With Intravenous Contrast CLINICAL HISTORY: The patient is 57 years old and is Female; near syncope, recent surgery, r/o PE TECHNIQUE: Axial computed tomographic angiography images of the chest with intravenous contrast. S agittal and coronal reformatted images were created and reviewed. This CT exam was performed using one or more of the following dose reduction techniques: automated exposure control, adjustment of t he mA and/or kV according to patient size, and/or use of iterative reconstruction technique. MIP reconstructed images were created and reviewed. COMPARISON: No relevant prior studies available. FINDINGS: PULMONARY ARTERIES: There are no obvious filling defects identified within the pulmonary arteries to suggest pulmonary embolism. AORTA: No acute findings. No thoracic aortic aneurysm. LUNGS: Minimal dependent densities in the lung bases are present. The lungs are otherwise well -inflated and clear. No mass. PLEURAL SPACE: Unremarkable. No significant effusion. No pneumothorax. HEART: Unremarkable. No cardiomegaly. No significant pericardial effusion. No evidence of RV dysfunction. BONES/JOINTS: No acute fracture. No dislocation. SOFT TISSUES: Unremarkable. LYMPH NODES: Unremarkable. No enlarged lymph nodes. IMPRESSION: No evidence of pulmonary embolism. Electronically signed by: Jeannette Guajardo MD 05/06/2022 1:25 AM FLIGHT ENGINEER Due to temporary technical issues with the PACS/Fluency reporting system, reports are being signed by the in house radiologists without review as a courtesy to insure prompt reporting. The interpreting radiologist is fully responsible for the content of the report.
== END 2022-05-06 02:14 | disposition home or self-care (01) ==
LOC: ER 22:59
DX: R42 Dizziness and giddiness (principal); R11.2 Nausea with vomiting, unspecified
CPT/HCPCS: 96361; 93005; 85025; 36415; 83735; 85379; 84484; 80053; 71275; 96375; 96374; 99284; Q9967; J7030; J2405